=== PATIENT | female | born 1995 | race African-American/Black ===

== ENCOUNTER 2017-07-01 11:33 | Emergency (ER) | payer MEDICAID ==
[~2017-07-01] VITALS: Ht 160 cm; Wt 72.6 kg
[2017-07-01 11:50] VITALS: BP 120/86
== END 2017-07-01 12:34 | disposition left against medical advice (07) ==
LOC: ER 11:33
DX: O26.891 Other specified pregnancy related conditions, first trimester (principal); R51 Headache; Z53.21 Procedure and treatment not carried out due to patient leaving prior to being seen by health care provider